=== PATIENT | female | born 1965 | race Caucasian/White ===

== ENCOUNTER 2016-10-26 20:37 | Emergency (ER) | payer OTHER ==
[~2016-10-26] VITALS: Ht 149.9 cm; Wt 68.0 kg
[~2016-10-26 20:37] MED LIST: MECL-62 PO
[2016-10-26 20:40] VITALS: BP 126/73; PULSE 77; RESP 20; TEMP 97.9; O2SAT 97
[2016-10-26] MEDS ORDERED: ROBA750T PO (21:44)
[2016-10-26] MEDS ORDERED: HYDR-3533 PO (21:44)
[2016-10-26] MEDS ORDERED: DICL75TA PO (21:44)
[2016-10-26] MEDS ORDERED: HYDROmorphone HCL PF 1 MG/ML VIAL IM ONE (21:45)
[2016-10-26] MEDS ORDERED: ONDANSETRON ODT 4 MG TAB PO ONE (21:45)
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
== END 2016-10-26 21:59 | disposition home or self-care (01) ==
LOC: NETRI 20:37 → EDTENT 21:59 → NETRI 21:59
DX: S33.5XXA Sprain of ligaments of lumbar spine, initial encounter (principal); W19.XXXA Unspecified fall, initial encounter
CPT/HCPCS: 96372; 99284; J1170